=== PATIENT | male | born 1980 | race African-American/Black ===

== ENCOUNTER 2021-10-13 02:45 | Emergency (ER) | payer OTHER ==
[2021-10-13 02:55] VITALS: BMI 40.2
[2021-10-13] MEDS ORDERED: dilTIAZem HCL 125 MG/25 ML - 25 ML VIAL ONE ×2 (03:09→03:39)
[2021-10-13] MEDS ORDERED: ASPIRIN 325 MG ENTERIC COATED TABLET (FP) ONE (03:17)
[2021-10-13] MEDS ORDERED: NITROGLYCERIN SUBLINGUAL 1/150 0.4 MG TAB ONE (03:18)
[2021-10-13] MEDS ORDERED: ASPIRIN 81 MG CHEWABLE TABLETS PO ONE (03:22)
[2021-10-13] MEDS ORDERED: dilTIAZem HCL 50 MG/10 ML - 10 ML VIAL IVPUSH ONE ×2 (03:22→03:32)
[2021-10-13] MEDS ORDERED: NITROGLYCERIN SUBLINGUAL 1/150 0.4 MG TAB SL ONE (03:23)
[2021-10-13] MEDS ORDERED: dilTIAZem HCL 50 MG/10 ML - 10 ML VIAL ONE (03:35)
[2021-10-13] MEDS ORDERED: HEPARIN NA (PORCINE) 5,000 UNITS/ML 1ML VIAL IVPUSH PRN ×3 (04:22→04:25)
[2021-10-13 04:28] LABS: HEMATOCRIT 43.2 % (35.4-49); HEMOGLOBIN 14.8 GM/dL (11.7-16.9); MCH 31.3 pg (25.7-33.7); MCHC 34.3 g/dl (32.0-35.9); MEAN CELL VOLUME 91.2 fl (80-96); MEAN PLT VOLUME 12.1 fl (7.5-11.1); PLATELET COUNT 120 10^3/uL (134-434); RBC 4.74 M/mm3 (4.00-5.60); RDW 13.3 % (11.9-15.9); WHITE BLOOD COUNT 5.9 K/mm3 (4.0-10.0)
[2021-10-13] MEDS ORDERED: HEPARIN - 25,000 UNIT in SODIUM CHLORIDE 495 ML IV SCH (04:30)
[2021-10-13] MEDS ORDERED: HEPARIN INFUSION - 25,000 UNITS/500 ML INFUS.BAG IVPB ONE (04:35)
[2021-10-13 05:01] LABS: INR 0.93 (0.83-1.09); PROTHROMBIN TIME (PATIENT) 10.4 SEC (9.7-13.0)
[2021-10-13 05:07] VITALS: TEMP 98.2
[2021-10-13 05:13] LABS: BLOOD UREA NITROGEN 15.6 mg/dL (7-18); CREATININE 1.4 mg/dL (0.55-1.3); GLUCOSE,RANDOM 250 mg/dL (74-106); SODIUM 139 mmol/L (136-145)
[2021-10-13] MEDS ORDERED: HEPARIN NA (PORCINE) 5,000 UNITS/ML 1ML VIAL ONE (05:13)
[2021-10-13 05:14] LABS: ALBUMIN 3.9 g/dl (3.4-5.0); CALCIUM 9.5 mg/dL (8.5-10.1); CHLORIDE 98 mmol/L (98-107); CO2 32 mmol/L (21-32); TOT PROT 7.6 g/dl (6.4-8.2)
[2021-10-13 05:15] LABS: ALK PHOS 79 U/L (45-117); BILIRUBIN,TOTAL 0.6 mg/dL (0.2-1); SGOT/AST 25 U/L (15-37); SGPT/ALT 31 U/L (13-61)
[2021-10-13 06:35] LABS: EPI CELLS 1 /uL (0-25.1); HYALINE CASTS 0 /uL (0-3.1); URINE BACTERIA 5 /uL (0-1359); URINE RBC 16 /uL (0-23.9); URINE WBC 2 /uL (0-25.8)
[2021-10-13 06:59] LABS: COCAINE, UR NEGATIVE (NEGATIVE); METHADONE, UR NEGATIVE (NEGATIVE); OPIATES, URI NEGATIVE (NEGATIVE); PHENCYCLIDINE,URINE NEGATIVE (NEGATIVE); URINE AMPHETAMINES NEGATIVE (NEGATIVE); URINE BARBITURATES NEGATIVE (NEGATIVE); URINE BENZODIAZEPINES NEGATIVE (NEGATIVE)
[2021-10-13 10:01] VITALS: BP 156/80; PULSE 90
[2021-10-13 12:24] LABS: PH,URINE 7.5 (5.0-8.0); URINE APPEARANCE Clear; URINE BILIRUBIN Negative (NEGATIVE); URINE COLOR Yellow; URINE GLUCOSE (UA) 2+ (NEGATIVE); URINE KETONE Negative (NEGATIVE); URINE LEUK ESTERASE Negative (NEGATIVE); URINE NITRITE Negative (NEGATIVE); URINE PROTEIN 2+ (NEGATIVE); URINE UROBILINOGEN 0.2 mg/dL (0.2-1.0)
[2021-10-13 20:13] LABS: ANION GAP 9 MMOL/L (8-16)
== END 2021-10-13 10:04 | disposition short-term general hospital (02) ==
LOC: JER 02:45
PROC: 3E033GC Introduction of Other Therapeutic Substance into Peripheral Vein, Percutaneous Approach (ICD-10-PCS; principal; 2021-10-13)
PROC: 3E033GC Introduction of Other Therapeutic Substance into Peripheral Vein, Percutaneous Approach (ICD-10-PCS; 2021-10-13)
PROC: 3E033GC Introduction of Other Therapeutic Substance into Peripheral Vein, Percutaneous Approach (ICD-10-PCS; 2021-10-13)
PROC: 3E033GC Introduction of Other Therapeutic Substance into Peripheral Vein, Percutaneous Approach (ICD-10-PCS; 2021-10-13)
PROC: 3E033GC Introduction of Other Therapeutic Substance into Peripheral Vein, Percutaneous Approach (ICD-10-PCS; 2021-10-13)
PROC: 3E033GC Introduction of Other Therapeutic Substance into Peripheral Vein, Percutaneous Approach (ICD-10-PCS; 2021-10-13)
DX: I48.91 Unspecified atrial fibrillation (principal); I20.0 Unstable angina
CPT/HCPCS: 36415; 71045-TC-FY; 80053; 80307; 81003; 82550; 82553; 82962; 84484; 85027; 85379; 85610; 93005; 93010; 93308; 99285-25; C9803; J1644; U0003; U0005

== ENCOUNTER 2023-02-03 00:43 | Observation (INO) | payer OTHER ==
[2023-02-03] MEDS ORDERED: ASPIRIN 81 MG CHEWABLE TABLETS PO ONE (01:10)
[2023-02-03] MEDS ORDERED: ASPIRIN 81 MG CHEWABLE TABLETS ONE ×2 (01:21→10:28)
[2023-02-03 01:28] LABS: HEMATOCRIT 46.5 % (35.4-49); HEMOGLOBIN 16.4 GM/dL (11.7-16.9); MCH 31.5 pg (25.7-33.7); MCHC 35.4 g/dl (32.0-35.9); MEAN PLT VOLUME 11.6 fl (7.5-11.1); MONO % 11.3 % (3.8-10.2); NEUT % 49.7 % (42.8-82.8); PLATELET COUNT 171 10^3/uL (134-434); RBC 5.23 M/mm3 (4.00-5.60); RDW 13.4 % (11.9-15.9); WHITE BLOOD COUNT 6.9 K/mm3 (4.0-10.0)
[2023-02-03 01:41] LABS: INR 0.89 (0.83-1.09); PROTHROMBIN TIME (PATIENT) 10.3 SEC (9.7-13.0)
[2023-02-03 01:44] LABS: ACTIVATED PTT 32.6 SECONDS (25.2-36.5)
[2023-02-03 01:57] LABS: EPI CELLS 6 /uL (0-25.1); HYALINE CASTS 0 /uL (0-3.1); PH,URINE 7.5 (5.0-8.0); URINE APPEARANCE CLEAR; URINE BACTERIA 9 /uL (0-1359); URINE BILIRUBIN NEGATIVE (NEGATIVE); URINE COLOR YELLOW; URINE GLUCOSE (UA) 3+ (NEGATIVE); URINE KETONE NEGATIVE (NEGATIVE); URINE LEUK ESTERASE NEGATIVE (NEGATIVE); URINE NITRITE NEGATIVE (NEGATIVE); URINE PROTEIN 2+ (NEGATIVE); URINE RBC 18 /uL (0-23.9); URINE UROBILINOGEN 0.2 mg/dL (0.2-1.0); URINE WBC 12 /uL (0-25.8)
[2023-02-03 02:45] LABS: BLOOD UREA NITROGEN 14.6 mg/dL (7-18); CALCIUM 8.7 mg/dL (8.5-10.1)
[2023-02-03 02:46] LABS: ALBUMIN 4.2 g/dl (3.4-5.0); MAGNESIUM 1.9 mg/dL (1.8-2.4)
[2023-02-03 02:49] LABS: CREATININE 1.1 mg/dL (0.55-1.3)
[2023-02-03 02:50] LABS: BILIRUBIN,TOTAL 0.6 mg/dL (0.2-1); TOT PROT 8.4 g/dl (6.4-8.2)
[2023-02-03] MEDS ORDERED: POTASSIUM CHLORIDE TABS 20 MEQ TABLET.ER (FP) PO ONE ×3 (03:00→08:01)
[2023-02-03] MEDS ORDERED: POTASSIUM CHLORIDE ORAL LIQUID 20 MEQ/15 ML PO ONE (03:56)
[2023-02-03] MEDS ORDERED: MAGNESIUM SULF 50% (8.12 MEQ/2 ML-1 GM VIAL) IVPB ONE (03:57)
[2023-02-03] MEDS ORDERED: POTASSIUM CHLORIDE ORAL LIQUID 20 MEQ/15 ML ONE (04:02)
[2023-02-03] MEDS ORDERED: MAGNESIUM SULFATE IN WATER 2 GM/50 ML IVPB IVPB ONE (04:03)
[2023-02-03] MEDS: KCL 10 MEQ IVPB 10 MEQ/100 ML INFUS.BAG IVPB SCH ×2 (05:30→08:13)
[2023-02-03] MEDS ORDERED: amLODIPine BESYLATE 5 MG TABLET (FP) PO ONE (05:56)
[2023-02-03] MEDS ORDERED: LABETALOL HCL 20 MG/4 ML VIAL IVPUSH ONE (06:13)
[2023-02-03] MEDS ORDERED: amLODIPine BESYLATE 5 MG TABLET (FP) ONE (06:22)
[2023-02-03] MEDS ORDERED: LABETALOL HCL 20 MG/4 ML VIAL ONE (06:22)
[2023-02-03] MEDS ORDERED: KCL 10 MEQ IVPB 10 MEQ/100 ML INFUS.BAG IVPB ONE (06:24)
[2023-02-03] MEDS ORDERED: hydrALAZINE HCL 20 MG/ML VIAL IVPUSH PRN (07:09)
[2023-02-03] MEDS ORDERED: HYDROCHLOROTHIAZIDE 25 MG TABLET (FP) ONE (07:45)
[2023-02-03] MEDS ORDERED: LOSARTAN POTASSIUM 50 MG TABLET ONE (07:45)
[2023-02-03] MEDS: HYDROCHLOROTHIAZIDE 25 MG TABLET (FP) PO SCH (08:13)
[2023-02-03] MEDS: INSULIN SLIDING SCALE (NOVOLOG) 1 VIAL SQ SCH ×4 (08:13→22:09)
[2023-02-03] MEDS: NIFEdipine E.R 60 MG TABLET PO SCH ×2 (08:14→10:26)
[2023-02-03] MEDS: REPAGLINIDE 1 MG TABLET PO SCH ×3 (08:16→17:16)
[2023-02-03 08:53] LABS: BLOOD UREA NITROGEN 17.2 mg/dL (7-18); CALCIUM 8.8 mg/dL (8.5-10.1); MAGNESIUM 2.7 mg/dL (1.8-2.4)
[2023-02-03 08:57] LABS: CREATININE 1.1 mg/dL (0.55-1.3)
[2023-02-03] MEDS ORDERED: HYDROCHLOROTHIAZIDE 25 MG TABLET (FP) PO SCH (10:00)
[2023-02-03] MEDS ORDERED: amLODIPine BESYLATE 5 MG TABLET (FP) PO SCH (10:00)
[2023-02-03] MEDS: LOSARTAN POTASSIUM 50 MG TABLET PO SCH (10:26)
[2023-02-03] MEDS: ASPIRIN 81 MG CHEWABLE TABLETS PO SCH (10:26)
[2023-02-03] MEDS: hydrALAZINE HCL 25 MG TABLET (FP) PO SCH ×2 (16:25→22:09)
[2023-02-03] MEDS ORDERED: hydrALAZINE HCL 25 MG TABLET (FP) ONE (16:36)
[2023-02-03] MEDS: RIVAROXABAN 20 MG TABLET PO SCH (17:38)
[2023-02-03] MEDS: ATORVASTATIN CA 40 MG TABLET (FP) PO SCH (22:09)
[2023-02-04 02:50] VITALS: BMI 42.5
[2023-02-04] MEDS: INSULIN SLIDING SCALE (NOVOLOG) 1 VIAL SQ SCH ×4 (06:18→21:37)
[2023-02-04] MEDS: hydrALAZINE HCL 25 MG TABLET (FP) PO SCH ×3 (06:18→21:33)
[2023-02-04] MEDS: HYDROCHLOROTHIAZIDE 25 MG TABLET (FP) PO SCH (06:18)
[2023-02-04] MEDS: NIFEdipine E.R 60 MG TABLET PO SCH ×2 (08:15→10:53)
[2023-02-04] MEDS: LOSARTAN POTASSIUM 50 MG TABLET PO SCH ×2 (08:15→10:53)
[2023-02-04] MEDS: REPAGLINIDE 1 MG TABLET PO SCH ×3 (08:16→17:34)
[2023-02-04] MEDS ORDERED: REGADENOSON 0.4 MG/5 ML PRE-FILLED SYRINGE IVPUSH ONE ×2 (09:24→09:45)
[2023-02-04] MEDS: ASPIRIN 81 MG CHEWABLE TABLETS PO SCH (14:32)
[2023-02-04] MEDS: RIVAROXABAN 20 MG TABLET PO SCH (17:08)
[2023-02-04] MEDS: ATORVASTATIN CA 40 MG TABLET (FP) PO SCH (21:33)
[2023-02-05] MEDS: hydrALAZINE HCL 25 MG TABLET (FP) PO SCH (05:59)
[2023-02-05] MEDS: INSULIN SLIDING SCALE (NOVOLOG) 1 VIAL SQ SCH (06:10)
[2023-02-05] MEDS: HYDROCHLOROTHIAZIDE 25 MG TABLET (FP) PO SCH (07:22)
[2023-02-05 07:25] VITALS: PULSE 78
[2023-02-05] MEDS: NIFEdipine E.R 60 MG TABLET PO SCH (09:33)
[2023-02-05] MEDS: LOSARTAN POTASSIUM 50 MG TABLET PO SCH (09:33)
[2023-02-05] MEDS: ASPIRIN 81 MG CHEWABLE TABLETS PO SCH (09:33)
[2023-02-05] MEDS: REPAGLINIDE 1 MG TABLET PO SCH (09:34)
[2023-02-05 11:15] VITALS: BP 163/101; RESP 22; TEMP 98.6
== END 2023-02-05 09:53 | disposition home or self-care (01) ==
LOC: JER 00:43 → INTOOBSV 04:55 → JERBED 04:55 → J4W 22:02
PROVIDERS: ADMIT Internal Medicine; ATTEND Family Medicine
PROC: 3E033GC Introduction of Other Therapeutic Substance into Peripheral Vein, Percutaneous Approach (ICD-10-PCS; principal; 2023-02-03)
PROC: 3E013VG Introduction of Insulin into Subcutaneous Tissue, Percutaneous Approach (ICD-10-PCS; 2023-02-03)
DX: I48.91 Unspecified atrial fibrillation (principal); I16.0 Hypertensive urgency; I24.9 Acute ischemic heart disease, unspecified; I11.9 Hypertensive heart disease without heart failure; E11.9 Type 2 diabetes mellitus without complications; R07.9 Chest pain, unspecified; E66.01 Morbid (severe) obesity due to excess calories; Z68.41 Body mass index [BMI] 40.0-44.9, adult
CPT/HCPCS: 0241U-QW; 36415; 71046-TC-FY; 71275-TC; 74174-TC; 78452-TC; 80048; 80053; 81003; 82088; 82384; 82550; 82553; 82962; 83036; 83735; 84244; 84484; 85025; 85610; 85730; 87086; 93005; 93010; 93017; 93306-TC; 96372; 96374; 96375; 99285-25; A9502; G0378; J2785; Q9967

== ENCOUNTER 2023-09-04 03:04 | Observation (INO) | payer OTHER ==
[2023-09-04] MEDS ORDERED: dilTIAZem HCL 60 MG TABLET PO ONE (03:23)
[2023-09-04 03:26] VITALS: BMI 34.2
[2023-09-04] MEDS ORDERED: ACETAMINOPHEN INJECTION 100 ML IVPB ONE (03:35)
[2023-09-04 03:38] LABS: BASO % 0.7 % (0-2.0); EOS % 1.9 % (0-4.5); HEMOGLOBIN 15.4 GM/dL (11.7-16.9); LYMPH % 21.8 % (8-40); MCH 30.6 pg (25.7-33.7); MEAN CELL VOLUME 87.4 fl (80-96); MEAN PLT VOLUME 12.3 fl (7.5-11.1); MONO % 7.4 % (3.8-10.2); NEUT % 68.2 % (42.8-82.8); PLATELET COUNT 143 10^3/uL (134-434); RBC 5.03 M/mm3 (4.00-5.60); RDW 13.6 % (11.9-15.9); WHITE BLOOD COUNT 9.3 K/mm3 (4.0-10.0)
[2023-09-04 03:44] LABS: INR 1.65 (0.83-1.09); PROTHROMBIN TIME (PATIENT) 19.1 SEC (9.7-13.0)
[2023-09-04] MEDS ORDERED: ACETAMINOPHEN 1000 MG/100 ML BAG IVPB ONE (03:44)
[2023-09-04 03:47] LABS: ACTIVATED PTT 35.3 SECONDS (25.2-36.5)
[2023-09-04] MEDS ORDERED: dilTIAZem HCL 60 MG TABLET ONE (03:49)
[2023-09-04 04:07] LABS: POTASSIUM 3.4 mmol/L (3.5-5.1)
[2023-09-04 04:08] LABS: CALCIUM 8.4 mg/dL (8.5-10.1)
[2023-09-04 04:09] LABS: ALBUMIN 3.4 g/dl (3.4-5.0); MAGNESIUM 1.5 mg/dL (1.8-2.4)
[2023-09-04 04:11] LABS: CREATININE 1.3 mg/dL (0.55-1.3)
[2023-09-04 04:13] LABS: BILIRUBIN,TOTAL 0.5 mg/dL (0.2-1); TOT PROT 6.8 g/dl (6.4-8.2)
[2023-09-04 04:17] LABS: N-TERMINAL BNP 1384.4 pg/ml (5-125)
[2023-09-04] MEDS ORDERED: MAGNESIUM SULF 50% (8.12 MEQ/2 ML-1 GM VIAL) IVPB ONE (04:27)
[2023-09-04] MEDS ORDERED: MAGNESIUM 1GM/D5W - 1 GM/100 ML IVPB IVPB ONE (04:27)
[2023-09-04 04:28] LABS: BLOOD UREA NITROGEN 23.8 mg/dL (7-18)
[2023-09-04] MEDS ORDERED: ACETAMINOPHEN 325 MG TABLET (FP) PO PRN (06:50)
[2023-09-04] MEDS ORDERED: DOCUSATE SODIUM 100 MG CAPSULE (FP) PO PRN (06:50)
[2023-09-04 06:58] LABS: CHLORIDE 95 mmol/L (98-107); POTASSIUM 3.5 mmol/L (3.5-5.1); SODIUM 134 mmol/L (136-145)
[2023-09-04 07:00] LABS: CALCIUM 8.6 mg/dL (8.5-10.1)
[2023-09-04 07:01] LABS: ANION GAP 11 mmol/L (4-13); BLOOD UREA NITROGEN 23.8 mg/dL (7-18); CO2 28 mmol/L (21-32); LIPASE 79 U/L (73-393); MAGNESIUM 1.6 mg/dL (1.8-2.4)
[2023-09-04 07:04] LABS: CREATININE 1.6 mg/dL (0.55-1.3)
[2023-09-04 07:20] LABS: GLUCOSE,RANDOM 401 mg/dL (74-106)
[2023-09-04] MEDS: INSULIN SLIDING SCALE (NOVOLOG) 1 VIAL SQ SCH ×4 (08:40→21:34)
[2023-09-04] MEDS ORDERED: ASPIRIN 81 MG CHEWABLE TABLETS ONE (10:30)
[2023-09-04] MEDS ORDERED: NIFEdipine E.R 60 MG TABLET PO ONE (10:30)
[2023-09-04] MEDS ORDERED: TAMSULOSIN HCL 0.4 MG CAP ONE (10:30)
[2023-09-04] MEDS: SODIUM CHLORIDE 0.9%/KCL 20 MEQ/1,000 ML INFUS.BAG IV SCH (10:31)
[2023-09-04] MEDS: ASPIRIN 81 MG CHEWABLE TABLETS PO SCH (10:32)
[2023-09-04] MEDS: NIFEdipine E.R 60 MG TABLET PO SCH (10:32)
[2023-09-04] MEDS: TAMSULOSIN HCL 0.4 MG CAP PO SCH (10:32)
[2023-09-04] MEDS ORDERED: INSULIN (NOVOLOG) ASPART 100 UNITS/ML 10ML VIAL ONE ×2 (11:45→21:32)
[2023-09-04] MEDS: INSULIN (LEVEMIR) 100 UNITS/ML UNITS SQ SCH ×2 (11:47→21:16)
[2023-09-04] MEDS ORDERED: hydrALAZINE HCL 50 MG TABLET (FP) ONE (13:15)
[2023-09-04] MEDS: hydrALAZINE HCL 50 MG TABLET (FP) PO SCH ×2 (13:18→21:17)
[2023-09-04] MEDS: RIVAROXABAN 20 MG TABLET PO SCH (18:33)
[2023-09-04] MEDS ORDERED: ATORVASTATIN CA 40 MG TABLET (FP) PO SCH (22:00)
[2023-09-05] MEDS ORDERED: INSULIN (NOVOLOG) ASPART 100 UNITS/ML 10ML VIAL ONE ×2 (06:17→11:19)
[2023-09-05] MEDS: INSULIN SLIDING SCALE (NOVOLOG) 1 VIAL SQ SCH ×3 (06:20→16:58)
[2023-09-05] MEDS: hydrALAZINE HCL 50 MG TABLET (FP) PO SCH ×2 (06:21→14:48)
[2023-09-05] MEDS: INSULIN (LEVEMIR) 100 UNITS/ML UNITS SQ SCH (06:21)
[2023-09-05] MEDS ORDERED: INSULIN (LEVEMIR) 100 UNITS/ML UNITS SQ SCH (09:25)
[2023-09-05] MEDS: SODIUM CHLORIDE 0.9%/KCL 20 MEQ/1,000 ML INFUS.BAG IV SCH (09:59)
[2023-09-05] MEDS: ASPIRIN 81 MG CHEWABLE TABLETS PO SCH (10:06)
[2023-09-05] MEDS: TAMSULOSIN HCL 0.4 MG CAP PO SCH ×2 (10:06→10:09)
[2023-09-05] MEDS: NIFEdipine E.R 60 MG TABLET PO SCH (10:06)
[2023-09-05] MEDS ORDERED: EMPAGLIFLOZIN (JARDIANCE) 10 MG TABLET PO SCH (11:00)
[2023-09-05 15:21] VITALS: BP 149/84; PULSE 98; RESP 19; TEMP 97.9
[2023-09-05 15:52] LABS: POTASSIUM 3.3 mmol/L (3.5-5.1)
[2023-09-05 15:54] LABS: CALCIUM 9.1 mg/dL (8.5-10.1)
[2023-09-05 15:55] LABS: ALBUMIN 3.7 g/dl (3.4-5.0); BLOOD UREA NITROGEN 16.8 mg/dL (7-18)
[2023-09-05 15:58] LABS: CREATININE 1.1 mg/dL (0.55-1.3)
[2023-09-05 15:59] LABS: BILIRUBIN,TOTAL 0.8 mg/dL (0.2-1); TOT PROT 7.6 g/dl (6.4-8.2)
[2023-09-05] MEDS ORDERED: POTASSIUM CHLORIDE ORAL LIQUID 20 MEQ/15 ML PO ONE (17:15)
[2023-09-05] MEDS: RIVAROXABAN 20 MG TABLET PO SCH (17:38)
[2023-09-05] MEDS ORDERED: INSULIN (LEVEMIR) 100 UNITS/ML UNITS SQ ONE (18:20)
== END 2023-09-05 18:45 | disposition home or self-care (01) ==
LOC: JER 03:04 → JERBED 04:31 → J4W 15:52
PROVIDERS: ADMIT Internal Medicine; ATTEND Family Medicine
PROC: 3E013VG Introduction of Insulin into Subcutaneous Tissue, Percutaneous Approach (ICD-10-PCS; principal; 2023-09-04)
PROC: 3E033GC Introduction of Other Therapeutic Substance into Peripheral Vein, Percutaneous Approach (ICD-10-PCS; 2023-09-04)
DX: N17.9 Acute kidney failure, unspecified (principal); I48.91 Unspecified atrial fibrillation; I10 Essential (primary) hypertension; E11.9 Type 2 diabetes mellitus without complications; N28.9 Disorder of kidney and ureter, unspecified; E78.5 Hyperlipidemia, unspecified; E66.9 Obesity, unspecified; K76.0 Fatty (change of) liver, not elsewhere classified; Z79.01 Long term (current) use of anticoagulants; R07.89 Other chest pain
CPT/HCPCS: 36415; 71045-TC-FY; 76775-TC; 80048; 80053; 80061; 82962; 83036; 83690; 83735; 83880; 84443; 84484; 85025; 85610; 85730; 93005; 93010; 96372; 96374; 99285-25; G0378

== ENCOUNTER 2024-06-30 16:09 | Inpatient (IN) | payer OTHER ==
[2024-06-30 16:30] VITALS: BMI 39.5
[2024-06-30 17:44] LABS: BASO % 1.2 % (0-2.0); EOS % 2.4 % (0-4.5); HEMOGLOBIN 14.4 GM/dL (11.7-16.9); LYMPH % 26.3 % (8-40); MCH 30.7 pg (25.7-33.7); MCHC 34.2 g/dl (32.0-35.9); MEAN CELL VOLUME 89.9 fl (80-96); MEAN PLT VOLUME 12.2 fl (7.5-11.1); MONO % 8.7 % (3.8-10.2); NEUT % 61.4 % (42.8-82.8); PLATELET COUNT 148 10^3/uL (134-434); RBC 4.67 M/mm3 (4.00-5.60); WHITE BLOOD COUNT 6.1 K/mm3 (4.0-10.0)
[2024-06-30 17:52] LABS: INR 1.02 (0.83-1.09); PROTHROMBIN TIME (PATIENT) 11.5 SEC (9.7-13.0)
[2024-06-30 17:55] LABS: ACTIVATED PTT 31.2 SECONDS (25.2-36.5)
[2024-06-30 18:04] LABS: POTASSIUM 3.7 mmol/L (3.5-5.1)
[2024-06-30 18:06] LABS: CALCIUM 9.3 mg/dL (8.5-10.1)
[2024-06-30 18:07] LABS: ALBUMIN 3.6 g/dl (3.4-5.0); BLOOD UREA NITROGEN 12.7 mg/dL (7-18)
[2024-06-30 18:10] LABS: CREATININE 1.1 mg/dL (0.55-1.3)
[2024-06-30 18:11] LABS: BILIRUBIN,TOTAL 0.9 mg/dL (0.2-1); TOT PROT 6.8 g/dl (6.4-8.2)
[2024-06-30 18:15] LABS: N-TERMINAL BNP 945.8 pg/ml (5-125)
[2024-06-30] MEDS ORDERED: morphine SULFATE 4 MG/ML VIAL ONE ×2 (18:18→20:11)
[2024-06-30] MEDS: morphine CARPU-JECT 4 MG/1 ML DISP.SYRIN IVPUSH ONE ×2 (18:33→20:14)
[2024-06-30 18:51] LABS: EPI CELLS 13 /uL (0-25.1); HYALINE CASTS 0 /uL (0-3.1); PH,URINE 7.5 (5.0-8.0); URINE APPEARANCE CLEAR; URINE BACTERIA 42 /uL (0-1359); URINE BILIRUBIN NEGATIVE (NEGATIVE); URINE COLOR YELLOW; URINE GLUCOSE (UA) 2+ (NEGATIVE); URINE KETONE NEGATIVE (NEGATIVE); URINE LEUK ESTERASE NEGATIVE (NEGATIVE); URINE NITRITE NEGATIVE (NEGATIVE); URINE PROTEIN 1+ (NEGATIVE); URINE RBC 847 /uL (0-23.9); URINE UROBILINOGEN 0.2 mg/dL (0.2-1.0); URINE WBC 16 /uL (0-25.8)
[2024-06-30 19:15] LABS: URINE AMPHETAMINES NEGATIVE (NEGATIVE)
[2024-06-30 19:16] LABS: COCAINE, UR NEGATIVE (NEGATIVE); METHADONE, UR NEGATIVE (NEGATIVE); OPIATES, URI NEGATIVE (NEGATIVE); PHENCYCLIDINE,URINE NEGATIVE (NEGATIVE); URINE BARBITURATES NEGATIVE (NEGATIVE); URINE BENZODIAZEPINES NEGATIVE (NEGATIVE)
[2024-06-30] MEDS ORDERED: LABETALOL HCL 20 MG/4 ML VIAL ONE ×2 (19:54→22:03)
[2024-06-30] MEDS: LABETALOL HCL 5 MG/1 ML (100MG/20 ML VIAL) IVPUSH ONE ×2 (20:00→22:07)
[2024-06-30] MEDS ORDERED: DOXYCYCLINE HYCLATE 100 MG CAPSULE PO ONE (20:32)
[2024-06-30] MEDS ORDERED: CEFTRIAXONE 1 GM/50 ML BAG ONE (20:32)
[2024-06-30] MEDS: DOXYCYCLINE HYCLATE 100 MG CAPSULE PO ONE (20:38)
[2024-06-30] MEDS ORDERED: ASPIRIN 325 MG ENTERIC COATED TABLET (FP) ONE (21:59)
[2024-06-30] MEDS: ASPIRIN 325 MG TABLET PO ONE (22:02)
[2024-06-30] MEDS ORDERED: HEPARIN NA (PORCINE) 5,000 UNITS/ML 1ML VIAL ONE (22:30)
[2024-06-30] MEDS ORDERED: HEPARIN INFUSION - 25,000 UNITS/500 ML INFUS.BAG IVPB ONE (22:30)
[2024-06-30] MEDS: HEPARIN NA (PORCINE) 5,000 UNITS/ML 1ML VIAL IVPUSH ONE (22:43)
[2024-06-30] MEDS: HEPARIN INFUSION - 25,000 UNITS/500 ML INFUS.BAG IVPB SCH (22:51)
[2024-06-30] MEDS: LABETALOL HCL 100 MG TABLET (FP) PO ONE (22:53)
[2024-07-01] MEDS ORDERED: LABETALOL HCL 20 MG/4 ML VIAL ONE (04:24)
[2024-07-01] MEDS: LABETALOL HCL 5 MG/1 ML (100MG/20 ML VIAL) IVPUSH ONE (04:30)
[2024-07-01] MEDS ORDERED: HEPARIN NA (PORCINE) 5,000 UNITS/ML 1ML VIAL ONE (05:28)
[2024-07-01] MEDS: HEPARIN NA (PORCINE) 5,000 UNITS/ML 1ML VIAL IVPUSH PRN (05:30)
[2024-07-01] MEDS ORDERED: HEPARIN NA (PORCINE) 5,000 UNITS/ML 1ML VIAL IVPUSH PRN (05:55)
[2024-07-01 06:54] VITALS: TEMP 98.6
[2024-07-01] MEDS ORDERED: ASPIRIN 81 MG CHEWABLE TABLETS ONE (09:33)
[2024-07-01] MEDS ORDERED: CEFTRIAXONE 1 GM/50 ML BAG ONE (11:41)
[2024-07-01] MEDS ORDERED: AZITHROMYCIN IVPB 500 MG/250 ML BAG IVPB ONE (11:41)
[2024-07-01] MEDS: CEFTRIAXONE 1 GM in DEXTROSE 5%-WATER - 50 ML IVPB SCH (12:05)
[2024-07-01] MEDS: NIFEdipine E.R 60 MG TABLET PO SCH (12:05)
[2024-07-01] MEDS: ASPIRIN 81 MG CHEWABLE TABLETS PO SCH (12:05)
[2024-07-01 12:30] VITALS: PULSE 68; RESP 16
[2024-07-01] MEDS: AZITHROMYCIN IVPB 500 MG/250 ML BAG IVPB SCH (12:49)
[2024-07-01 13:15] LABS: INR 0.98 (0.83-1.09); PROTHROMBIN TIME (PATIENT) 11.1 SEC (9.7-13.0)
[2024-07-01 13:56] VITALS: BP 156/113
[2024-07-01 14:17] LABS: ACTIVATED PTT 28.9 SECONDS (25.2-36.5)
[2024-07-01] MEDS ORDERED: ATORVASTATIN CA 40 MG TABLET (FP) PO SCH (22:00)
== END 2024-07-01 14:15 | disposition short-term general hospital (02) | DRG 190 ==
LOC: JER 16:09 → JERBED 20:37
PROVIDERS: ADMIT Internal Medicine; ATTEND Internal Medicine
DX: I21.4 Non-ST elevation (NSTEMI) myocardial infarction (principal); J18.9 Pneumonia, unspecified organism; I10 Essential (primary) hypertension; I16.1 Hypertensive emergency; E11.9 Type 2 diabetes mellitus without complications; J90 Pleural effusion, not elsewhere classified; I48.0 Paroxysmal atrial fibrillation; E66.9 Obesity, unspecified; Z68.39 Body mass index [BMI] 39.0-39.9, adult; K76.0 Fatty (change of) liver, not elsewhere classified
CPT/HCPCS: 36415; 70450-TC; 71045-TC-FY; 71275-TC; 74174-TC; 80053; 80307; 81003; 82550; 82553; 82962; 83690; 83880; 84484; 85025; 85610; 85730; 87086; 93005; 93010; 93308; 99285-25; J1644; Q9967

== ENCOUNTER 2025-02-20 22:57 | Observation (INO) | payer OTHER ==
[2025-02-20] MEDS ORDERED: FUROSEMIDE 40 MG/4 ML INJECTABLE VIAL ONE (23:18)
[2025-02-20 23:36] LABS: VENOUS BASE EXCESS 4.4 mmol/L (-2-2); VENOUS O2 SATURATION 59.2 % (70-80); VENOUS PCO2 50.7 mmHg (38-52); VENOUS PH 7.396 (7.310-7.410)
[2025-02-20] MEDS: FUROSEMIDE 40 MG/4 ML INJECTABLE VIAL IVPUSH ONE ×2 (23:36)
[2025-02-20 23:42] LABS: ABSOLUTE IMMATURE GRANULOCYTES 0.02 x10^3/uL (0.0-0.031); BASOPHILS # 0.03 x10^3/uL (0.01-0.08); EOSINOPHIL % 3.1 % (0.8-7.0); EOSINOPHILS # 0.21 x10^3/uL (0.04-0.54); HEMATOCRIT 39.6 % (40.1-51.0); HEMOGLOBIN 13.2 g/dL (13.7-17.5); MCHC 33.3 g/dl (32.3-36.5); MEAN CELL VOLUME 89.4 fl (79.0-92.2); MEAN PLT VOLUME 14.1 fl (9.4-12.4); MONOCYTE # 0.79 x10^3/uL (0.30-0.82); MONOCYTE % 11.6 % (5.3-12.2); PLATELET COUNT 120 x10^3/uL (163-337); RDW 12.3 % (12.1-15.9)
[2025-02-20 23:52] LABS: INR 1.05 (0.83-1.09); PROTHROMBIN TIME (PATIENT) 11.6 SEC (9.7-13.0)
[2025-02-20 23:54] LABS: ACTIVATED PTT 29.4 SECONDS (25.2-36.5)
[2025-02-20 23:59] LABS: POTASSIUM 3.7 mmol/L (3.5-5.1)
[2025-02-21 00:01] LABS: CALCIUM 8.8 mg/dL (8.5-10.1)
[2025-02-21 00:02] LABS: ALBUMIN 3.1 g/dl (3.4-5.0); BLOOD UREA NITROGEN 18.3 mg/dL (7-18)
[2025-02-21 00:05] LABS: CREATININE 1.3 mg/dL (0.55-1.3); PHOSPHOROUS 3.6 mg/dL (2.5-4.9)
[2025-02-21 00:06] LABS: BILIRUBIN,TOTAL 1.3 mg/dL (0.2-1)
[2025-02-21 00:07] LABS: TOT PROT 6.5 g/dl (6.4-8.2)
[2025-02-21 00:10] LABS: N-TERMINAL BNP 1381.7 pg/ml (5-125)
[2025-02-21] MEDS ORDERED: hydrALAZINE HCL 50 MG TABLET (FP) ONE (00:37)
[2025-02-21] MEDS: hydrALAZINE HCL 50 MG TABLET (FP) PO ONE (00:40)
[2025-02-21] MEDS ORDERED: NIFEdipine E.R 60 MG TABLET PO ONE (01:11)
[2025-02-21] MEDS: NIFEdipine E.R 60 MG TABLET PO ONE (01:19)
[2025-02-21] MEDS ORDERED: CEFTRIAXONE 1 G/50 ML PREMIX 50 ML IVPB ONE (02:29)
[2025-02-21] MEDS: CEFTRIAXONE 1,000 MG in DEXTROSE 5%-WATER - 50 ML IVPB ONE (02:35)
[2025-02-21] MEDS ORDERED: AZITHROMYCIN IVPB 500 MG/250 ML BAG IVPB ONE (02:53)
[2025-02-21] MEDS: AZITHROMYCIN IVPB 500 MG in DEXTROSE 5%-WATER - 250 ML IVPB ONE (03:17)
[2025-02-21 03:41] LABS: URINE APPEARANCE CLEAR; URINE BILIRUBIN NEGATIVE (NEGATIVE); URINE COLOR YELLOW; URINE GLUCOSE (UA) 1+ (NEGATIVE); URINE KETONE NEGATIVE (NEGATIVE); URINE LEUK ESTERASE NEGATIVE (NEGATIVE); URINE NITRITE NEGATIVE (NEGATIVE); URINE PROTEIN NEGATIVE (NEGATIVE)
[2025-02-21 04:23] VITALS: BMI 40.9
[2025-02-21] MEDS: INSULIN ASPART SLIDING SCALE (NOVOLOG) 1 VIAL SQ SCH (06:05)
[2025-02-21 07:30] LABS: ABSOLUTE IMMATURE GRANULOCYTES 0.01 x10^3/uL (0.0-0.031); BASOPHILS # 0.04 x10^3/uL (0.01-0.08); HEMATOCRIT 40.8 % (40.1-51.0); HEMOGLOBIN 13.5 g/dL (13.7-17.5); MCHC 33.1 g/dl (32.3-36.5); MEAN CELL VOLUME 89.5 fl (79.0-92.2); MEAN PLT VOLUME 14.6 fl (9.4-12.4); MONOCYTE # 0.76 x10^3/uL (0.30-0.82); MONOCYTE % 11.3 % (5.3-12.2); PLATELET COUNT 123 x10^3/uL (163-337); RDW 12.3 % (12.1-15.9)
[2025-02-21 08:02] LABS: POTASSIUM 3.5 mmol/L (3.5-5.1)
[2025-02-21 08:07] LABS: BLOOD UREA NITROGEN 15.9 mg/dL (7-18)
[2025-02-21 08:08] LABS: ALBUMIN 3.3 g/dl (3.4-5.0); CALCIUM 8.6 mg/dL (8.5-10.1)
[2025-02-21 08:13] LABS: BILIRUBIN,TOTAL 1.4 mg/dL (0.2-1); TOT PROT 6.7 g/dl (6.4-8.2)
[2025-02-21] MEDS: ASPIRIN 81 MG CHEWABLE TABLETS PO SCH (09:04)
[2025-02-21] MEDS ORDERED: ALBUTEROL SO4 2.5/IPRATROPIUM 0.5 INH SOL 3 ML VIAL.NEB. NEB PRN (09:45)
[2025-02-21] MEDS ORDERED: NIFEdipine E.R 60 MG TABLET PO SCH (10:00)
[2025-02-21] MEDS ORDERED: RIVAROXABAN 20 MG TABLET PO SCH (10:45)
[2025-02-21] MEDS: EMPAGLIFLOZIN (JARDIANCE) 10 MG TABLET PO SCH (11:15)
[2025-02-21] MEDS: RIVAROXABAN 20 MG TABLET PO SCH (17:48)
[2025-02-21] MEDS: ATORVASTATIN CA 40 MG TABLET (FP) PO SCH (21:14)
[2025-02-22] MEDS: EMPAGLIFLOZIN (JARDIANCE) 10 MG TABLET PO SCH (06:25)
[2025-02-22 07:18] LABS: ABSOLUTE IMMATURE GRANULOCYTES 0.01 x10^3/uL (0.0-0.031); BASOPHILS # 0.06 x10^3/uL (0.01-0.08); EOSINOPHIL % 4.5 % (0.8-7.0); EOSINOPHILS # 0.27 x10^3/uL (0.04-0.54); HEMATOCRIT 40.8 % (40.1-51.0); HEMOGLOBIN 13.5 g/dL (13.7-17.5); MCHC 33.1 g/dl (32.3-36.5); MEAN CELL VOLUME 89.7 fl (79.0-92.2); MONOCYTE # 0.65 x10^3/uL (0.30-0.82); MONOCYTE % 10.9 % (5.3-12.2); PLATELET COUNT 150 x10^3/uL (163-337); RDW 12.3 % (12.1-15.9)
[2025-02-22 07:48] LABS: POTASSIUM 3.8 mmol/L (3.5-5.1)
[2025-02-22 08:02] LABS: ALBUMIN 3.2 g/dl (3.4-5.0); BLOOD UREA NITROGEN 15.8 mg/dL (7-18)
[2025-02-22 08:04] LABS: CALCIUM 9.2 mg/dL (8.5-10.1)
[2025-02-22 08:05] LABS: CREATININE 1.1 mg/dL (0.55-1.3)
[2025-02-22 08:06] LABS: BILIRUBIN,TOTAL 1.1 mg/dL (0.2-1)
[2025-02-22 08:07] LABS: TOT PROT 6.9 g/dl (6.4-8.2)
[2025-02-22] MEDS: AZITHROMYCIN IVPB 500 MG/250 ML BAG IVPB SCH (09:20)
[2025-02-22] MEDS: CEFTRIAXONE 1 G/50 ML PREMIX 50 ML IVPB SCH (09:20)
[2025-02-22] MEDS: TAMSULOSIN HCL 0.4 MG CAP PO SCH (09:21)
[2025-02-22] MEDS: NIFEdipine E.R 60 MG TABLET PO SCH (09:21)
[2025-02-22] MEDS: hydrALAZINE HCL 50 MG TABLET (FP) PO SCH (13:22)
[2025-02-23] MEDS ORDERED: EMPAGLIFLOZIN (JARDIANCE) 25 MG TABLET PO SCH (07:25)
[2025-02-23] MEDS: NIFEdipine E.R. 90 MG TABLET PO SCH (09:24)
[2025-02-23] MEDS: FUROSEMIDE 20 MG TABLET (FP) PO SCH (09:24)
[2025-02-23 12:25] VITALS: PULSE 73; RESP 18
[2025-02-23 15:00] VITALS: BP 123/81; TEMP 98.6
[2025-02-24] MEDS ORDERED: FUROSEMIDE 40 MG TABLET (FP) PO SCH (10:00)
== END 2025-02-23 16:51 | disposition home or self-care (01) ==
LOC: JER 22:57 → JERBED 02-21 01:58 → J4W 02-21 03:40
PROVIDERS: ADMIT Hospitalist; ATTEND Family Medicine
PROC: 3E03329 Introduction of Other Anti-infective into Peripheral Vein, Percutaneous Approach (ICD-10-PCS; principal; 2025-02-21)
PROC: 3E0337Z Introduction of Electrolytic and Water Balance Substance into Peripheral Vein, Percutaneous Approach (ICD-10-PCS; 2025-02-21)
PROC: 3E033GC Introduction of Other Therapeutic Substance into Peripheral Vein, Percutaneous Approach (ICD-10-PCS; 2025-02-21)
DX: I16.0 Hypertensive urgency (principal); I11.0 Hypertensive heart disease with heart failure; I48.91 Unspecified atrial fibrillation; J18.9 Pneumonia, unspecified organism; N40.0 Benign prostatic hyperplasia without lower urinary tract symptoms; E78.5 Hyperlipidemia, unspecified; E11.9 Type 2 diabetes mellitus without complications; Z79.01 Long term (current) use of anticoagulants; E66.01 Morbid (severe) obesity due to excess calories; Z79.4 Long term (current) use of insulin; Z91.148 Patient's other noncompliance with medication regimen for other reason
CPT/HCPCS: 0241U-QW; 36415; 71045-TC-FY; 71250-TC; 80053; 81003; 82550; 82803; 82962; 83036; 83735; 83880; 84100; 84443; 84484; 85025; 85610; 85730; 86850; 86900; 86901; 87040; 87086; 87899; 93005; 93010; 93306-TC; 96361; 96365; 96366; 96368; 99285-25; G0378